=== PATIENT | male | born 2000 | race African-American/Black ===

== ENCOUNTER 2023-09-26 19:06 | Emergency (ER) | payer OTHER ==
[~2023-09-26] VITALS: Ht 185.4 cm; Wt 90.9 kg
[2023-09-26] MEDS ORDERED: METH-661 PO (19:20)
[2023-09-26] MEDS ORDERED: DULO-114 PO (19:20)
[2023-09-26 19:21] VITALS: TEMP 98.3
[2023-09-26] MEDS: METHOCARBAMOL 500 MG TABLET PO ONE (21:28)
[2023-09-26] MEDS: HYDROCODONE/ACETAMINOPHEN 5-325 MG TABLET PO ONE (21:29)
[2023-09-26] MEDS: KETOROLAC TROMETHAMINE 60 MG/2 ML VIAL IM ONE (21:29)
[2023-09-26] MEDS ORDERED: METH-659 PO ×2 (22:21)
[2023-09-26] MEDS ORDERED: ACET-2080 PO (22:21)
[2023-09-26] MEDS ORDERED: IBUP-1554 PO (22:34)
[2023-09-26 22:42] VITALS: BP 132/64; PULSE 70; RESP 18
== END 2023-09-26 23:11 | disposition home or self-care (01) ==
LOC: EMS 19:11
DX: G89.29 Other chronic pain (principal); M54.50 Low back pain, unspecified
CPT/HCPCS: 96372; 99283; J1885

== ENCOUNTER 2023-10-05 13:19 | Emergency (ER) | payer OTHER ==
[~2023-10-05] VITALS: Ht 185.4 cm; Wt 93.2 kg
[~2023-10-05 13:19] MED LIST: ACET-2080 PO; DULO-114 PO; IBUP-1554 PO; METH-659 PO
[2023-10-05 13:29] VITALS: TEMP 98.2
[2023-10-05] MEDS: LIDOCAINE 5% TRANSDERMAL PATCH TD ONE (17:59)
[2023-10-05] MEDS: HYDROCODONE/ACETAMINOPHEN 5-325 MG TABLET PO ONE (17:59)
[2023-10-05] MEDS: KETOROLAC TROMETHAMINE 30 MG/ML VIAL IM ONE (17:59)
[2023-10-05] MEDS ORDERED: LIDO700A15 TP (18:41)
[2023-10-05] MEDS ORDERED: TRAM-559 PO (18:41)
[2023-10-05 18:53] VITALS: BP 122/67; PULSE 72; RESP 16
== END 2023-10-05 18:54 | disposition home or self-care (01) ==
LOC: EMS 13:19
DX: M54.50 Low back pain, unspecified (principal); Z98.890 Other specified postprocedural states
CPT/HCPCS: 99283; 96372; J1885

== ENCOUNTER 2023-11-28 00:29 | Emergency (ER) | payer OTHER ==
[~2023-11-28] VITALS: Ht 185.4 cm; Wt 90.9 kg
[~2023-11-28 00:29] MED LIST changes: +LIDO700A15 TP; +TRAM50TA5 PO
[2023-11-28 00:34] VITALS: BP 126/73; PULSE 78; RESP 16; TEMP 98.3
[2023-11-28] MEDS ORDERED: TRAM50TA5 PO (01:32)
[2023-11-28] MEDS ORDERED: LIDO700A15 TP (01:32)
[2023-11-28] MEDS ORDERED: METH-659 PO (01:32)
[2023-11-28] MEDS: KETOROLAC TROMETHAMINE 30 MG/ML VIAL IM ONE (01:45)
[2023-11-28] MEDS: OxyCODONE HCL/ACETAMINOPHEN 5-325 MG TABLET PO ONE (01:45)
== END 2023-11-28 01:50 | disposition home or self-care (01) ==
LOC: EMS 00:29
DX: S39.012A Strain of muscle, fascia and tendon of lower back, initial encounter (principal); Z98.890 Other specified postprocedural states; W19.XXXA Unspecified fall, initial encounter; Y93.89 Activity, other specified; Y92.89 Other specified places as the place of occurrence of the external cause; Y99.8 Other external cause status
CPT/HCPCS: 99283; 96372; J1885

== ENCOUNTER 2023-12-01 11:35 | Emergency (ER) | payer OTHER ==
[~2023-12-01] VITALS: Ht 188 cm; Wt 90.9 kg
[2023-12-01 11:46] VITALS: BP 135/90; PULSE 96; RESP 18; TEMP 96.1
[2023-12-01 12:03] LABS: COVID AG,FIA SOURCE NASAL SWAB
[2023-12-01 12:29] LABS: INFLUENZA TYPE A NEGATIVE FOR TYPE A (NEGATIVE); INFLUENZA TYPE B NEGATIVE FOR TYPE B (NEGATIVE)
[2023-12-01 12:30] LABS: SARS-COV2 (COVID) ANTIGEN,FIA Negative (Negative)
[2023-12-01 22:59] LABS: APPEARANCE,URINE CLEAR (CLEAR); BILIRUBIN,URINE NEGATIVE (NEGATIVE); COLOR,URINE LIGHT YELLOW (YELLOW); GLUCOSE, URINE (UA) NEGATIVE (NEGATIVE); KETONES,URINE NEGATIVE (NEGATIVE); LEUKOCYTE ESTERASE ,URINE NEGATIVE (NEGATIVE); NITRATE,URINE NEGATIVE (NEGATIVE); OCCULT BLOOD,URINE NEGATIVE (NEGATIVE); PH,URINE 6.5 (5.0-8.0); PROTEIN,URINE NEGATIVE (NEGATIVE); UROBILINOGEN,URINE <=1.0 mg/dL (<=1.0)
[2023-12-01] MEDS ORDERED: ONDA-104 PO (23:29)
[2023-12-01] MEDS ORDERED: PERCT PO (23:30)
== END 2023-12-01 16:23 | disposition left against medical advice (07) ==
LOC: EMS 11:35
DX: R11.10 Vomiting, unspecified (principal); M54.9 Dorsalgia, unspecified; Z20.822 Contact with and (suspected) exposure to COVID-19; Z53.21 Procedure and treatment not carried out due to patient leaving prior to being seen by health care provider
CPT/HCPCS: 81003; 87804

== ENCOUNTER 2023-12-01 21:46 | Emergency (ER) | payer OTHER ==
[~2023-12-01] VITALS: Ht 185.4 cm; Wt 90.9 kg
[2023-12-01 22:13] VITALS: BP 151/82; PULSE 82; RESP 16; TEMP 98
[2023-12-01] MEDS: KETOROLAC TROMETHAMINE 30 MG/ML VIAL IVP ONE (22:32)
[2023-12-01] MEDS: SODIUM CHLORIDE 0.9% 1,000 ML IV ONE (22:32)
[2023-12-01] MEDS: ONDANSETRON HCL 4 MG/2 ML VIAL IVP ONE (22:33)
[2023-12-01 22:43] LABS: ANION GAP 8 mmol/L (8-16); CALCIUM, TOTAL 9.5 mg/dL (8.8-10.5); CARBON DIOXIDE 30 mmol/L (22-29); CHLORIDE 101 mmol/L (98-107); CREATININE 1.05 mg/dL (0.60-1.30); GLOMERULAR FILTR. RATE CALC > 60 mL/min (>60); GLUCOSE,RANDOM 101 mg/dL (70-110); POTASSIUM 3.6 mmol/L (3.5-5.1); SODIUM SERUM 139 mmol/L (136-145); UREA NITROGEN, BLOOD 10 mg/dL (7-18)
[2023-12-01 22:46] LABS: BASOPHILS % (AUTO) 0.4 % (0.0-2.0); EOSINOPHILS % (AUTO) 3.2 % (1.0-6.0); HEMATOCRIT 42.8 % (41-53); HEMOGLOBIN 14.5 g/dL (13.5-17.5); LYMPHOCYTES # (AUTO) 1.8 K/uL (1.0-4.8); LYMPHOCYTES % (AUTO) 48.2 % (22.0-44.0); MEAN CORPUSCULAR HEMOGLOBIN 30.1 pg (26.0-34.0); MEAN CORPUSCULAR VOLUME 89 fL (80-100); MONOCYTES # (AUTO) 0.3 K/uL (0.1-1.0); MONOCYTES % (AUTO) 7.8 % (2.0-9.0); NEUTROPHILS # (AUTO) 1.5 K/uL (1.8-7.7); NEUTROPHILS % (AUTO) 40.4 % (40.0-70.0); PLATELET COUNT (AUTO) 208 K/uL (150-450); RED BLOOD CELL COUNT(AUTO) 4.83 MIL/uL (4.50-5.90); RED CELL DISTRIBUTION WIDTH 13.7 % (11.5-14.5); WHITE BLOOD COUNT (AUTO) 3.8 K/uL (4.5-11.0)
[2023-12-01 22:51] LABS: ALANINE AMINOTRANSFERASE 28 U/L (12-78); ALBUMIN 4.5 g/dL (3.4-5.0); ALKALINE PHOSPHATASE 71 U/L (46-116); ASPARTATE AMINOTRANSFERASE 19 U/L (15-37); BILIRUBIN,TOTAL 1.7 mg/dL (0.1-1.0); LIPASE 29 U/L (16-77); TOTAL PROTEIN, SERUM 8.1 g/dL (6.4-8.2)
[2023-12-01] MEDS ORDERED: ONDA-104 PO (23:29)
[2023-12-01] MEDS ORDERED: PERCT PO (23:30)
== END 2023-12-01 23:45 | disposition home or self-care (01) ==
LOC: EMS 21:47
DX: R11.2 Nausea with vomiting, unspecified (principal); M79.18 Myalgia, other site
CPT/HCPCS: 99284; 96374; 96361; 96375; 80053; 83690; 85025; 36415; J1885; J2405; J7030

== ENCOUNTER 2023-12-09 11:20 | Emergency (ER) | payer OTHER ==
[~2023-12-09] VITALS: Ht 185.4 cm; Wt 88.6 kg
[~2023-12-09 11:20] MED LIST changes: +ONDA-104 PO; +PERCT PO
[2023-12-09 11:27] VITALS: TEMP 98.4
[2023-12-09] MEDS: LIDOCAINE 5% TRANSDERMAL PATCH TD ONE (13:29)
[2023-12-09] MEDS: HYDROCODONE/ACETAMINOPHEN 5-325 MG TABLET PO ONE (13:29)
[2023-12-09] MEDS: KETOROLAC TROMETHAMINE 30 MG/ML VIAL IM ONE (13:30)
[2023-12-09] MEDS ORDERED: CYCL-448 PO (13:42)
[2023-12-09] MEDS ORDERED: LIDO700A15 TP (13:42)
[2023-12-09 13:58] VITALS: BP 139/79; PULSE 77; RESP 16
== END 2023-12-09 14:11 | disposition home or self-care (01) ==
LOC: EMS 11:21
DX: M54.50 Low back pain, unspecified (principal); Z98.890 Other specified postprocedural states
CPT/HCPCS: 99283; 96372; J1885

== ENCOUNTER 2023-12-21 15:48 | Emergency (ER) | payer OTHER ==
[~2023-12-21] VITALS: Ht 185.4 cm; Wt 86.3 kg
[~2023-12-21 15:48] MED LIST changes: -ACET-2080 PO; +CYCL-448 PO; -IBUP-1554 PO; -METH-659 PO; -ONDA-104 PO; -PERCT PO
[2023-12-21 16:09] VITALS: BP 123/69; PULSE 87; RESP 18; TEMP 97.3
[2023-12-22] MEDS ORDERED: ONDA-104 PO (01:49)
[2023-12-22] MEDS ORDERED: ACET-3385 PO (01:49)
== END 2023-12-21 19:47 | disposition left against medical advice (07) ==
LOC: EMS 15:48
DX: R11.10 Vomiting, unspecified (principal); Z53.21 Procedure and treatment not carried out due to patient leaving prior to being seen by health care provider
CPT/HCPCS: 93005

== ENCOUNTER 2023-12-21 23:53 | Emergency (ER) | payer OTHER ==
[~2023-12-21] VITALS: Ht 185.4 cm; Wt 88.6 kg
[2023-12-21 23:58] VITALS: BP 103/64; PULSE 84; RESP 17; TEMP 98.3
[2023-12-22 00:45] LABS: BASOPHILS % (AUTO) 0.8 % (0.0-2.0); EOSINOPHILS % (AUTO) 3.4 % (1.0-6.0); HEMOGLOBIN 12.5 g/dL (13.5-17.5); LYMPHOCYTES # (AUTO) 1.9 K/uL (1.0-4.8); LYMPHOCYTES % (AUTO) 40.8 % (22.0-44.0); MEAN CORPUSCULAR HEMOGLOBIN 30.2 pg (26.0-34.0); MEAN CORPUSCULAR HGB CONC 33.8 G/dL (31.0-37.0); MEAN CORPUSCULAR VOLUME 89 fL (80-100); MONOCYTES # (AUTO) 0.4 K/uL (0.1-1.0); MONOCYTES % (AUTO) 8.1 % (2.0-9.0); NEUTROPHILS # (AUTO) 2.2 K/uL (1.8-7.7); NEUTROPHILS % (AUTO) 46.9 % (40.0-70.0); PLATELET COUNT (AUTO) 233 K/uL (150-450); RED BLOOD CELL COUNT(AUTO) 4.14 MIL/uL (4.50-5.90); RED CELL DISTRIBUTION WIDTH 14.3 % (11.5-14.5); WHITE BLOOD COUNT (AUTO) 4.7 K/uL (4.5-11.0)
[2023-12-22 00:52] LABS: ANION GAP 5 mmol/L (8-16); CALCIUM, TOTAL 9.1 mg/dL (8.8-10.5); CARBON DIOXIDE 30 mmol/L (22-29); CHLORIDE 103 mmol/L (98-107); CREATININE 1.25 mg/dL (0.60-1.30); GLOMERULAR FILTR. RATE CALC > 60 mL/min (>60); GLUCOSE,RANDOM 118 mg/dL (70-110); POTASSIUM 4.1 mmol/L (3.5-5.1); SODIUM SERUM 138 mmol/L (136-145); UREA NITROGEN, BLOOD 13 mg/dL (7-18)
[2023-12-22 00:56] LABS: PROTHROMBIN TIME 10.9 SEC (9.4-11.6)
[2023-12-22 00:57] LABS: ALANINE AMINOTRANSFERASE 31 U/L (12-78); ALBUMIN 3.8 g/dL (3.4-5.0); ALKALINE PHOSPHATASE 72 U/L (46-116); ASPARTATE AMINOTRANSFERASE 20 U/L (15-37); BILIRUBIN,TOTAL 0.9 mg/dL (0.1-1.0); LIPASE 39 U/L (16-77); TOTAL PROTEIN, SERUM 7.3 g/dL (6.4-8.2)
[2023-12-22] MEDS ORDERED: ACET-3385 PO (01:49)
[2023-12-22] MEDS ORDERED: ONDA-104 PO (01:49)
[2023-12-22] MEDS: ONDANSETRON HCL 4 MG TABLET PO ONE (02:02)
[2023-12-22] MEDS: FAMOTIDINE 20 MG TABLET PO ONE (02:02)
[2023-12-22] MEDS: MAG HYDROX/ALUMINUM HYD/SIMETH 30 ML SUSPENSION UDCUP PO ONE (02:02)
[2023-12-22] MEDS: ACETAMINOPHEN 500 MG TABLET PO ONE (02:02)
[2023-12-22 03:18] LABS: INFLUENZA A-RTPCR,COMBO NEGATIVE (NEGATIVE); INFLUENZA B-RTPCR,COMBO NEGATIVE (NEGATIVE); RESPIRATORY SYNCYTIAL VRS-PCR NEGATIVE (NEGATIVE); SARS COVID19 RTPCR, COMBO NEGATIVE (NEGATIVE)
== END 2023-12-22 02:16 | disposition home or self-care (01) ==
LOC: EMS 23:55
DX: R11.2 Nausea with vomiting, unspecified (principal); Z20.822 Contact with and (suspected) exposure to COVID-19
CPT/HCPCS: 99284; 0241U; 80053; 83690; 85025; 85610; 85730; 36415; Q0162

== ENCOUNTER 2024-01-23 17:59 | Emergency (ER) | payer OTHER ==
[~2024-01-23] VITALS: Ht 185.4 cm; Wt 95.5 kg
[~2024-01-23 17:59] MED LIST changes: +ACET-3385 PO; +ONDA-104 PO
[2024-01-23 18:08] VITALS: BP 147/73; PULSE 94; RESP 16; TEMP 98.2
[2024-01-23] MEDS: KETOROLAC TROMETHAMINE 30 MG/ML VIAL IM ONE (22:34)
[2024-01-23] MEDS: LIDOCAINE 5% TRANSDERMAL PATCH TD ONE (22:34)
[2024-01-23] MEDS: HYDROCODONE/ACETAMINOPHEN 5-325 MG TABLET PO ONE (22:34)
[2024-01-23] MEDS ORDERED: LIDO700A15 TP (23:08)
== END 2024-01-23 23:22 | disposition home or self-care (01) ==
LOC: EMS 17:59
DX: M54.50 Low back pain, unspecified (principal); F12.90 Cannabis use, unspecified, uncomplicated; Z98.890 Other specified postprocedural states
CPT/HCPCS: 99283; 96372; J1885

== ENCOUNTER 2024-04-23 16:14 | Emergency (ER) | payer OTHER ==
[~2024-04-23] VITALS: Ht 185.4 cm; Wt 93.2 kg
[2024-04-23 16:31] VITALS: BP 131/96; PULSE 87; RESP 20; TEMP 98.4; O2SAT 100
[2024-04-23] MEDS ORDERED: LIDO700A15 TP (19:28)
[2024-04-23] MEDS ORDERED: IBUP-1492 PO (19:28)
[2024-04-23] MEDS: LIDOCAINE 5% TRANSDERMAL PATCH TD ONE (19:30)
[2024-04-23] MEDS: ACETAMINOPHEN 500 MG TABLET PO ONE (19:30)
[2024-04-23] MEDS: KETOROLAC TROMETHAMINE 30 MG/ML VIAL IM ONE (19:30)
== END 2024-04-23 19:34 | disposition home or self-care (01) ==
LOC: EMS 16:14
DX: M54.50 Low back pain, unspecified (principal); F12.90 Cannabis use, unspecified, uncomplicated
CPT/HCPCS: 99283; 96372; J1885

== ENCOUNTER 2024-05-03 23:31 | Emergency (ER) | payer OTHER ==
[~2024-05-03] VITALS: Ht 193 cm; Wt 97.7 kg
[~2024-05-03 23:31] MED LIST changes: -CYCL-448 PO; -DULO-114 PO; +IBUP-1492 PO; -ONDA-104 PO; -TRAM50TA5 PO
[2024-05-03 23:37] VITALS: TEMP 98.1
[2024-05-04 01:54] VITALS: BP 143/91; PULSE 67; RESP 18; O2SAT 99
[2024-05-04] MEDS ORDERED: TRAM50TA5 PO (03:07)
[2024-05-04] MEDS: BACITRACIN 0.9 GM PACKET OINTMENT TP ONE (03:10)
[2024-05-04] MEDS: TraMADol HCL 50 MG TABLET PO ONE (03:10)
== END 2024-05-04 03:28 | disposition home or self-care (01) ==
LOC: EMS 23:31
DX: Z48.00 Encounter for change or removal of nonsurgical wound dressing (principal); F12.90 Cannabis use, unspecified, uncomplicated
CPT/HCPCS: 99283